=== PATIENT | female | born 1995 | race Asian ===

== ENCOUNTER 2019-08-10 05:14 | Inpatient (IN) | payer OTHER ==
[~2019-08-10] VITALS: Ht 157.5 cm; Wt 73.6 kg
[2019-08-10] MEDS ORDERED: LACTATED RINGER'S 1000 ML IV ONE (06:15)
[2019-08-10 06:23] LABS: HEMATOCRIT 40.3 % (36.0-47.0); HEMOGLOBIN 13.7 g/dl (12.0-15.5); MEAN CORPUSCULAR HEMOGLOBIN 28.7 pg (27.0-33.0); MEAN CORPUSCULAR VOLUME 84.5 fl (80.0-96.0); PLATELET COUNT, AUTOMATED 136 10^3/uL (150-450); RED BLOOD COUNT 4.77 10^6/uL (4.00-5.40); WHITE BLOOD COUNT 10.2 10^3/uL (4.0-10.0)
[2019-08-10] MEDS ORDERED: FENTANYL 2MCG/ML ROPIVACAINE 0.2% IN 0.9% NACL 100ML IVBAG As Ordered ONE (07:09)
[2019-08-10] MEDS: FENTANYL/ROPIVACAINE/NACL BAG 100 ML EPIDURAL SCH ×2 (07:51→18:30)
--- NOTE | 2019-08-10 08:16 | HPE ---
DATE OF ADMISSION: 08/10/2019 This lady is a 24-year-old 1, para 0, LMP 11/11/2018, EDC 08/29/2019 at 37 and 2 weeks of gestation who was admitted in active labor at term. Assessed by the nurse, found to be 5-6 cm, bulging membranes, -3 station. She has a category one strip. No loss of fluid or vaginal bleeding. Her risk factors is she has asthma. She has echogenic focus in the left ventricle. I had a quad screen which was negative and GBS negative. Lab values show that she is B+, HIV negative, hepatitis negative, RPR negative, rubella immune. Varicella nonimmune. Pap normal. Urine negative. Gonorrhea and chlamydia negative. 1-hour glucose was 136. 3-hour GTT, her fasting was 86, 1 hour 124, 2 hour 135 and 3 hour was 73. She is GBS negative, as of August 08, 2019. Hemoglobin 11.3, hematocrit 40.3 and platelets are 136. Our plan of management is to hydrate the patient, epidural as requested. It presently is safe to proceed. Her blood pressure on admission is not available but her heart rate 65, respirations are 17, temperature 98.1. The rest the examination unremarkable. She is normocephalic, atraumatic. Neck: Full range of motion. Pupils equal and reactive to light. Wears glasses. Chest is clear bilaterally bases. No wheezes or rhonchi. No CVA tenderness. Abdomen soft. Uterus appropriate symphysis fundus height. Four quadrant bowel sounds are noted. She has no rashes, lesions or pruritus. She has no arthralgia or myalgia, complaint of joint pains. Does not complain of cough, wheeze, shortness of breath or dyspnea on exertion. Neuro complete. No incontinency, urgency or frequency. No nausea, vomiting, diarrhea or constipation. No diabetic issues. Her 3-hour GTT was within normal limits. Her past gyne history unremarkable for STDs or abnormal Pap smears. Medical and surgical history is unremarkable. Family history noncontributory. She does not smoke, drink, abuse drugs. There is no domestic violence and she is to a soldier and has good support systems. In discussion for consent for delivery, wishes baby through the vagina, possible assistance with forceps or vacuum if needed for maternal or indications. Forceps or vacuums devices can assist with vaginal delivery when normal pushing efforts cannot achieve delivery on their own or when delivery is needed in emergency for baby's well-being. Medications may be required to induce or augment labor in order to achieve vaginal delivery and episiotomy may be required to help the baby deliver vaginally. You may also require repair of any lacerations or tears of vagina, vulva that are caused by delivery, in some cases emergencies can arise that require emergency section. The provider will discuss this with you and they are only done for or maternal indications. delivery is baby deliver through the abdomen and it may be safer sometimes for the mother and baby than continuing labor and is only performed with clinical indications. Risk of vaginal delivery include but are not limited to bleeding, infection, injury to the vagina, pelvic structures, injury to baby, damage to the uterus, reaction to anesthesia, uterine rupture, risk of hysterectomy for life-threatening bleeding issues and even . Medications used to induce or augment labor may be used, may cause increased risk of infection, uterine tachysystole, uterine rupture, heart rate abnormalities, need for emergency section or possible hysterectomy or hemorrhage. Additional risks with use of forceps or vacuum include scratches, hematomas of the head or intracranial bleed. The patient expressed understanding of same and agrees to continue with plan of care. Presently her blood pressure is 132/76, respirations are 17, pulse is 65 and temperature 98.1. MTDD
[2019-08-10] MEDS ORDERED: NALOXONE INJ 0.4 MG/1 ML VIAL (J2310) IV PRN (08:30)
[2019-08-10] MEDS ORDERED: REFRIGERATOR IV KEYS XX PRN (08:30)
[2019-08-10] MEDS ORDERED: LACTATED RINGER'S 1000 ML IV PRN (08:30)
[2019-08-10] MEDS ORDERED: EPIDURAL/PCA KEYS XX PRN (08:30)
[2019-08-10] MEDS ORDERED: diphenhydrAMINE INJ 50MG/ML VIAL (J1200) IV PRN (08:30)
[2019-08-10] MEDS ORDERED: EPIDURAL COMMENT XX SCH (08:30)
[2019-08-10] MEDS ORDERED: ePHEDrine SULFATE 25 MG/5 ML(5MG/ML) SYRINGE IV PRN (08:30)
[2019-08-10] MEDS ORDERED: ONDANSETRON 4MG/2ML VIAL (J2405) IV PRN (08:30)
[2019-08-10] MEDS ORDERED: OXYTOCIN DRIP 30 UNITS in IV 1 EA IV SCH (10:45)
--- NOTE | 2019-08-10 10:50 | IPNPDOC ---
Text Note Date of Service The patient was seen on 08/10/19. NOTE I accepted care of this patient on 10Aug2019 at 0730. Late entry due to patient care. OB Considerations: - Asthma- mild persistent; on singulair and albuterol prn - Echogenic focus/ f/u no change - PUPPPs - Varicella Nonimmune - needs vaccination Veronica is a 24yo G1 at 37+2wks (KENA [id number]) who presented in labor. She had regular contraction and was noted to be ~5cm on presentation. She denies vb, LOF. Reports active movement. course complicated byt the able problems. PMH/PSH reviewed, notable for Mild Persistent Asthma, [place] Teeth Ex traction. NKDA. Labs Reviewed B Positive - Antibody Negative UCx Mixed Annette H/H<PLT 14/41<208 HIV Negative HBV Negative RPR Negative Rubella Immune Varicella NONIMMUNE GC Negative Pap: Dec 2018 NILM H/H<PLT 12/36<163 1HR 136 3HR 86/124/130/73 HIV Negative GBS Negative Labor Course: Admission 0600 4-5CM dilated VS: Reviewed, nontachycardic, normotensive, afebrile GEN: WNWD, NAD ABD: Soft, Gravid, NT EXT: No edema 0919 DCE: 6//-2 AROM - clear FHR: 130bpm. Moderate Variability, + Accelerations, + Occasional Early Deceleration TOCO: q5-6min A/P: SIUP at 37wks, admitted in early labor, Epidural anesthesia, Cat I FHT - Continue to monitor - Continue VS per protocol - Consider Pitocin if contractions continue to be >5min apart - No PCN, GBS Negative - Recheck in 2 to 4 hrs or sooner if clinically indicated Victorina Altamirano DO VS,Shane, I+O VS, [place], I+O Laboratory Tests 08/10/19 06:05 Red Blood Count 4.77, Mean Corpuscular Volume 84.5, Mean Corpuscular Hemoglobin 28.7, Mean Corpuscular Hemoglobin Concent 34.0, Red Cell Distribution Width 14.1 VICTORINA ALTAMIRANO DO Aug 10, 2019 10:50
[2019-08-10] MEDS: LR 1,000 ML IV SCH ×2 (14:04→14:38)
[2019-08-10] MEDS ORDERED: AMPICILLIN SOD/SULBACTAM SOD 3 GM in D5W MINI-BAG PLUS 100 ML IV ONE (14:30)
[2019-08-10] MEDS ORDERED: ACETAMINOPHEN 500 MG TAB PO ONE (14:45)
[2019-08-10 15:09] LABS: CORD GAS ABE V -3.3; CORD GAS HCO3 V 22.6 MEQ/L; CORD GAS PCO2 V 43.5 mmHg; CORD GAS PH V 7.333 UNITS; CORD GAS PO2 V 26.1 mmHg; CORD GAS SBC V 20.8 MEQ/L; CORD GAS TCO2 V 23.9 MEQ/L
[2019-08-10] MEDS ORDERED: ACETAMINOPHEN TAB 650MG DOSE (2X325MG) PO PRN (16:00)
[2019-08-10] MEDS ORDERED: MEASLES,MUMPS,RUBELLA VACCINE INJ (MMR-II) (90707) SC SCH (16:00)
[2019-08-10] MEDS ORDERED: RHOGAM 300 MCG (1500 IU) INJ (J2790) IM SCH (16:00)
[2019-08-10] MEDS ORDERED: ACETAMINOPHEN 500 MG TAB PO PRN (16:00)
[2019-08-10] MEDS ORDERED: IBUPROFEN 600 MG TAB PO PRN (16:00)
[2019-08-10] MEDS ORDERED: DIBUCAINE 1% OINTMENT 30GM TOP PRN (16:00)
--- NOTE | 2019-08-10 16:13 | DNPDOC ---
[facility] Delivery Note Delivery Note DATE OF DELIVERY: [10Aug2019] PREDELIVERY DIAGNOSIS: [37]-[2]/7 weeks' gestation, Labor. POST DELIVERY DIAGNOSIS: Chorioamniotis, Delivery PROCEDURE: [Spontaneous vaginal delivery]. CUSTOMS INSPECTOR: Dr. Gore] ANESTHESIA: [Epidural]. ESTIMATED BLOOD LOSS: [200] mL. FINDINGS: [7] pound [1] ounce [3190gm] Female (Chasidy) infant, Score [8]/[9], nuchal cord - none. DELIVERY SUMMARY: Veronica is a 24yo G1 at 37+2wks (KENA [id number]) presented in labor. She progressed to C/C/+2. During stage II of labor, she developed maternal fever of Tm 102F and with tachycardia, was diagnosed with an Intrapartum Intraamniotic Infection. She received 3gm Unasyn and 1000mg PO Tylenol. She had an good epidural anesthesia. With good maternal effort, delivered OA, Restituted LOT. Anterior shoulder delivered spontaneously followed by the rest of the body. No nuchal cord. placed on maternal abdomen with vigorous cry. Delayed cord clamping until pulsations stopped was observed. The cord was then doubly clamped and cut by father of baby. Cord gases (venous only - unable to obtain arterial) Placenta delivered with gentle downward traction intact, jennifer, intact, 3VC. Systematic inspection of the vagina and perineum revealed a 1st degree and right side wall. Repaired with 3-0 Vicryl running with good hemostasis. Instruments, needles and laps were correct x2. Mother and stable and bonding when physician left the room. Venous pH 7.3 BE -3.3 DO ADARSH Diaz CRYSTAL B. DO Aug 10, 2019 16:13
[2019-08-10] MEDS: PRENATAL VITAMINS CHEWABLE TABLET PO SCH (17:00)
[2019-08-10 18:00] VITALS: BP 108/57
[2019-08-10] MEDS ORDERED: DOCUSATE SODIUM 100 MG CAP PO PRN (21:00)
[2019-08-11 06:29] VITALS: BP 101/53
--- NOTE | 2019-08-11 07:57 | IPNPDOC ---
Progress Note Date of Service: Aug 11, 2019 Day#: 3 Progress Note SUBJECT: Veronica is a 24yo [id number] status post spontaneous vaginal delivery complicated by Chorio at [37]-[2]/7 weeks' at approximately on 10Aug2019 of a famale [7] pounds [1] ounces ([3190] grams) with post vaginal laceration and repair, doing well day # [1]. She received one dose of Unasyn 3gm and has been afebrile since delivery. She has been ambulating, voiding spontaneously without issue and tolerating regular diet. Breast feeding without issue - infant in NICU per Chorio procotol. Reports lochia is [like a normal period]. Patient is ambulating well. OBJECTIVE: VITAL SIGNS: Within normal limits, afebrile. Alert and oriented times three. Abdomen: Fundus firm at U-1. Soft, NTTP. [Minimal] lochia. ASSESSMENT: Veronica is a 24yo [id number] status post spontaneous vaginal delivery complicated by Chorio at [37]-[2]/7 weeks' at approximately on 10Aug2019 of a famale [7] pounds [1] ounces ([3190] grams) with post vaginal laceration and repair, doing well day # [1]. Vitals within normal limits, afebrile, hemodynamically stable with no evidence of infection. PLAN: 1. Continue routine care. 2. Tylenol and Motrin for pain. 3. Encourage breast feeding and ambulation. 4. Encourage hydration. 5. Desires Mirena IUD, discussed with her infection would recommend waiting 3 months before insertion, and she desires to use [place]ip[place] bridge to IUD placement. 6. Discharge to home to PPD 2-3. VS, I&O, 24H, Fishbone Vital Signs/I&O Vital Signs Date Time Temp Pulse Resp B/P (MAP) Pulse Ox O2 Delivery O2 Flow Rate FiO2 08/11/19 06:29 98.2 80 16 101/53 (69) I&O- Last 24 Hours up to 6 AM 08/11/19 06:00 Intake Total 1600 ml Output Total 1000 ml Balance 600 ml Laboratory Data 24H LABS Laboratory Tests 2 08/10/19 14:48: Cord Venous Blood pH 7.333, Cord Venous Blood PCO2 43.5, Cord Venous Blood PO2 26.1, Cord Venous Blood HCO3 22.6, Cord Venous Blood Total CO2 23.9, Cord Venous Base Excess (Actual) -3.3, Cord Venous Base Excess (Standard) 20.8, Cord Venous Blood Oxygen Saturation 63.0 SHAR ALTAMIRANO DO Aug 11, 2019 07:57
[2019-08-11] MEDS ORDERED: INFLUENZA QUADRIVALENT PF VACCINE 0.5ML SYRINGE (90686) IM ONE (09:00)
[2019-08-11] MEDS: IBUPROFEN 800 MG TAB PO PRN ×2 (09:47→23:44)
[2019-08-11] MEDS: PRENATAL VITAMINS CHEWABLE TABLET PO SCH (09:47)
[2019-08-11 18:00] VITALS: BP 114/75
[2019-08-12 06:00] VITALS: BP 111/64
[2019-08-12] MEDS ORDERED: COLA100C5 PO (08:59)
[2019-08-12] MEDS ORDERED: ACET-683 PO (08:59)
[2019-08-12] MEDS ORDERED: IBUP80TA PO (08:59)
[2019-08-12] MEDS ORDERED: DIBU10OI TOP (08:59)
[2019-08-12] MEDS ORDERED: INFLUENZA QUADRIVALENT PF VACCINE 0.5ML SYRINGE (90686) IM ONE (09:00)
--- NOTE | 2019-08-12 09:07 | DSES ---
DATE OF ADMISSION: 08/10/2019 DATE OF DISCHARGE: 08/12/2019 24 old 1, now para 1 who was admitted in active labor at term 37 and 2 weeks of gestation. She had an epidural in place, spontaneous vaginal delivery female, 7 pounds 1 ounce 3190 grams, of 8 and 9 at one and five minutes respectively. Venous pH 7.33, base excess -3.3. She did have a first-degree perineal tear which was oversewn in the usual fashion. She had a questionable chorioamnionitis related to one elevated temperature, but since then does not have any elevation in temperature. Her admitting hemoglobin was 13.7, hematocrit 40.3 and platelets were 136. On discharge her blood pressure was 111/64, respirations 16, pulse 71, temperature 97.3. We discussed phlebitis, cystitis, mastitis, endometritis, cellulitis, diet, exercise pain management, perineal breast and wound care. Medications were dispensed at [facility]. to pick those up prior to going home. She is going to discuss control at her 6-week checkup. The rest examination unremarkable. Normocephalic, atraumatic. Neck full range of motion. Pupils equal and reactive to light. Distal pulses symmetric. No evidence of deep venous thrombosis (DVT), pulmonary embolus (PE) or superficial phlebitis. Chest is clear bilaterally at bases. No wheezes or rhonchi. No costovertebral angle (CVA) tenderness. Abdomen soft, four-quadrant bowel sounds are noted. Uterus 2 below. Perineum is healing. She has no rashes, lesions or pruritus. No arthralgia or myalgia. No complaint of joint pain. No cough, wheeze, shortness of breath or dyspnea on exertion. No nausea, vomiting, diarrhea or constipation. No urgency or frequency. The patient is passing gas and had a bowel movement. In summary, we have a term gestation delivered a live female infant. PLAN: 6-week checkup. Pickup medications at [facility] after discharge. DEE
[2019-08-12] MEDS: PRENATAL VITAMINS CHEWABLE TABLET PO SCH (11:57)
== END 2019-08-12 14:55 | disposition home or self-care (01) | DRG 805 ==
LOC: M LDO 05:14 → M LDI 05:32 → M OBS 17:40
PROVIDERS: ADMIT Obstetrics & Gynecology; ATTEND Obstetrics & Gynecology
PROC: 10E0XZZ Delivery of Products of Conception, External Approach (ICD-10-PCS; principal; 2019-08-10)
PROC: 0HQ9XZZ Repair Perineum Skin, External Approach (ICD-10-PCS; 2019-08-10)
DX: O99.52 Diseases of the respiratory system complicating childbirth (principal); Z37.0 Single live birth; O41.1230 Chorioamnionitis, third trimester, not applicable or unspecified; Z3A.37 37 weeks gestation of pregnancy; J45.30 Mild persistent asthma, uncomplicated; O70.0 First degree perineal laceration during delivery